=== PATIENT | female | born 1955 | race African-American/Black ===

== ENCOUNTER 2016-08-16 01:23 | Emergency (ER) | payer MEDICARE, OTHER ==
[~2016-08-16] VITALS: Ht 172.7 cm; Wt 131.5 kg
[~2016-08-16 01:23] MED LIST: ALBUAER3 IN; AMLO10TA2 PO; BENA40TA7 PO; CETI1TAB36 PO; HYDR25TA4 PO; METF-370 PO; METO-158 PO; OMEP20TA44 PO
[2016-08-16 02:20] LABS: Basophils # (auto) 0 uL; Basophils % (auto) 0.5 % (0.0-2.0); CONDITION Y; DEFINITIVE SEE PRINTOUT; Eosinophils # (auto) 0.3 uL; Eosinophils % (auto) 3.6 % (0.0-7.0); Hematocrit 36.2 % (36.0-46.0); Hemoglobin 11.8 g/dL (12.2-16.2); Lymphocytes # (auto) 1.7 uL; Mean Corpuscular Hemoglobin 25.8 pg (28.0-32.0); Mean Corpuscular Hgb Conc. 32.4 g/dL (32.0-36.0); Mean Corpuscular Volume 79.4 fL (80.0-100.0); Mean Platelet Volume 8.9 fL (7.4-10.4); Monocytes # (auto) 0.6 uL; Monocytes % (auto) 8.2 % (0.0-12.0); Neutrophils % (auto) 65.7 % (37.0-80.0); Platelet Count (auto) 394 10^3/uL (140-450); Red Cell Distribution Width 14.8 % (11.6-16.0); White Blood Cell 7.6 10^3/uL (4.4-10.8)
[2016-08-16 02:39] LABS: Albumin 3.1 g/dL (3.4-5.0); Anion Gap 13 (5-15); BUN/Creatinine Ratio 20.7; Blood Urea Nitrogen 23 mg/dL (7-18); Calcium 8.6 mg/dL (8.5-10.1); Carbon Dioxide 26 mmol/L (21-32); Chloride 105 mmol/L (98-107); GFR African American 65 mL/min; GFR Non-African American 53 mL/min; Glucose 165 mg/dL (74-106); Potassium 3.1 mmol/L (3.5-5.1); Sodium 144 mmol/L (136-145)
[2016-08-16 02:47] LABS: Alkaline Phosphatase 159 U/L (45-117); Aspartate Aminotransferase 11 U/L (15-37); Bilirubin, Total 0.2 mg/dL (0.2-1.0); Total Protein 7.5 g/dL (6.4-8.2)
[2016-08-16] MEDS ORDERED: SODIUM CHLORIDE 0.9% 1,000 ML IV ONE (03:29)
[2016-08-16] MEDS ORDERED: POTASSIUM CHL 10% (20 MEQ/15ML) ORAL SOLN PO ONE (03:45)
[2016-08-16 04:53] LABS: Partial Thromboplastin Time 26.1 sec (22.64-33.71); Prothrombin Time 10.9 sec (9.37-12.3)
[2016-08-16 05:38] VITALS: BP 107/54
[2016-08-16 05:59] LABS: B-Type Natriuretic Peptide 26.71 pg/mL (0-100)
[2016-08-16 06:03] LABS: Temperature: 22.7 C (20.0-25.0)
== END 2016-08-16 05:39 | disposition home or self-care (01) ==
LOC: EDBD 01:23 → ER 01:27
DX: R55 Syncope and collapse (principal); E11.9 Type 2 diabetes mellitus without complications; I10 Essential (primary) hypertension; J45.909 Unspecified asthma, uncomplicated; Z98.51 Tubal ligation status
CPT/HCPCS: 36415; 70450; 71010; 80053; 83735; 83880; 84484; 85025; 85610; 85730; 93005; 96360; 96361; 99285; J7030